=== PATIENT | male | born 1980 | race Caucasian/White ===

== ENCOUNTER 2021-06-15 09:21 | Emergency (ER) | payer SELFPAY ==
[2021-06-15 10:13] VITALS: BP 171/101; PULSE 97; RESP 20; TEMP 36.5; O2SAT 97; BMI 32.1
--- NOTE | 2021-06-15 11:05 | XRR_ITS ---
PROCEDURE INFORMATION: Exam: XR Abdomen Exam date and time: 06/15/2021 11:05 AM Age: 40 years old Clinical indication: Constipation TECHNIQUE: Imaging protocol: XR of the abdomen. Views: Frontal supine view of the abdomen. 1 View. COMPARISON: No relevant prior studies available. FINDINGS: Gastrointestinal tract: No dilated gas-filled loops of bowel. Large amount of stool throughout the colon and in the rectum. Bones/joints: No acute osseous abnormality. XR/XR KUB portable [id number] IMPRESSION: Large amount of stool throughout the colon and in the rectum. Radiation Dose CTDIVOL = (mGy): DLP = (mGy-cm)
--- NOTE | 2021-06-15 11:40 | W.ED.GENADLT ---
HPI - General Adult General: Chief complaint: General Medical Stated complaint: something came out of rectum while having bowel Time Seen by Provider: 06/15/21 10:56 History of Present Illness: HPI narrative: 40-year-old male has a bulging portion of tissue at the rectum after he strained for a bowel movement yesterday is extremely tender. Is not had any rectal bleeding. He has been constipated recently. No rectal bleeding Onset (ago): hour(s) Location: pelvis (Rectum) Severity: moderate Quality: sharp Pain Consistency: constant Relieving factors: immobilization (Lateral recumbent position) Exacerbating factors: other (Bowel movement, sitting) Associated symptoms: Deny chest pain, confusion, cough, diaphoresis, decreased appetite, dyspnea, fevers/chills, headache(s), malaise, nausea, rash, palpitations, seizures, short of breath, syncope, vomiting or weakness Treatments prior to arrival: none Review of Systems Const: Denies: malaise or diaphoresis ENMT: Denies: throat pain, ear or mastoid pain, nasal discharge or nasal congestion Card: Denies: chest pain, palpitations or syncope Resp: Denies: dyspnea GI: Denies: nausea or vomiting : Denies: flank pain, dysuria, urinary frequency or urinary urgency Skin/Breast: Denies: rash Neuro: Denies: headache(s) or confusion Physical Exam Const: COMMON NORMALS: no acute distress GENERAL APPEARANCE: cooperative and comfortable ORIENTATION/CONSCIOUSNESS: Yes awake, Yes oriented to person, Yes oriented to place and Yes oriented to time HENMT: COMMON NORMALS: normocephalic, atraumatic and hearing grossly normal bilaterally HEAD & SCALP: normocephalic and atraumatic Neck/C-Spine: COMMON NORMALS: no JVD Resp: COMMON NORMALS: normal respiratory effort, No retractions, No use of accessory muscles and clear to auscultation bilaterally AUSCULTATION: clear to auscultation bilaterally Cardio: COMMON NORMALS: no JVD, regular rate, regular rhythm and No murmurs present (Cardio) RATE: regular rate RHYTHM: regular rhythm GI: COMMON NORMALS: Soft to palpation and No hepatosplenomegaly present AUSCULTATION: Yes normoactive bowel sounds PALPATION: Yes Soft to palpation, No Tenderness to palpation present (GI), No Guarding due to palpation present (GI) and Yes No hepatosplenomegaly present OTHER: 2 thrombosed hemorrhoids 1 at the 9 o'clock position and is elongated another just superior to that. Extremity: COMMON NORMALS: normal to inspection, capillary refill normal, no clubbing, cyanosis or edema, no calf tenderness and no pedal edema Neuro: SENSORIUM/ORIENTATION: Yes oriented to person, Yes oriented to place and Yes oriented to time Skin: COMMON NORMALS: no rashes or lesions noted GENERAL SKIN EXAM: no rashes or lesions noted Procedures Abscess I/D Site: other (Thrombosed hemorrhoid rectum) Side (if applicable): right Local Anesthetic: lidocaine 1% and with epi Amount of anesthesia used (mL): 2 Technique: incised with #11 blade (Incision and drainage of thrombosed external hemorrhoid) Amount of fluid expressed (mL): 5 Packing used?: none Complications: pain Course Vital Signs: Vital signs: Vital Signs Temperature 97.7 F 06/15/21 10:13 Pulse Rate 18 L 06/15/21 12:57 Respiratory Rate 20 H 06/15/21 12:57 Blood Pressure 148/74 06/15/21 12:57 Pulse Oximetry 98 06/15/21 12:57 MDM - General Adult MDM Narrative: Medical decision making narrative: Discharge home pain medications topical Anusol follow-up with general surgery. Return if has further problems recommend sitz bath's and begin [id number] stool softeners regularly. Discharge Plan Discharge Patient Disposition: Home Clinical Impression: Hemorrhoids, thrombosed Condition: Stable Prescriptions: New hydrocodone-acetaminophen 5-325 mg tablet 1 tab PO Q6H PRN (Reason: pain) Qty: 15 RF: 0 Anusol-HC 2.5 % cream with perineal applicator 1 applic [place] QID 21 Days RF: 0 Discharge Orders: Discharge ED (Routine); Ordered 06/15/21 Ordered By: Benji Snow Patient Instructions: Opioid Safety Activity Restrictions/Additional Instructions: Case management will call to make arrangements for referral to general surgery. Coding Level of Care Code ED Engine Room Operator for Tomi Rondon
[2021-06-15] MEDS: LORazepam 2 mg/mL INJ 1 mL IVP (11:54)
[2021-06-15 11:55] VITALS: RESP 18
[2021-06-15] MEDS: morphine 4 mg/mL SDV 1 mL IVP (11:55)
[2021-06-15 12:57] VITALS: BP 148/74; PULSE 18; RESP 20; O2SAT 98
--- NOTE | 2021-06-15 14:24 | DCPLANNER ---
pre press manager had message to schedule a follow up appointment for patient with general surgery. pre press manager emailed patients information to Jacque Saleh and Angelica. Patients information will be printed and reviewed. Clinic will call patient with appointment information.
--- NOTE | 2021-07-09 07:49 | DCPLANNER ---
manager truck was told that when clinic called phone number in chart that clinic was told that was not the patients number. Clinic unable to reach patient to schedule an appointment.
== END 2021-06-15 12:58 | disposition home or self-care (01) ==
PROVIDERS: Emergency Provider Family Medicine
DX: K64.5 Perianal venous thrombosis (principal)
CPT/HCPCS: 46083; 74018; 96374; 96375; 99283; J2060; J2270

== ENCOUNTER 2025-01-19 12:54 | Emergency (ER) | payer SELFPAY ==
--- NOTE | 2025-01-19 12:55 | XRR_ITS ---
PROCEDURE INFORMATION: Exam: XR Chest Exam date and time: 01/19/2025 1:13 PM Age: 44 years old Clinical indication: Shortness of breath; SOB TECHNIQUE: Imaging protocol: Radiologic exam of the chest. Views: 1 view. COMPARISON: CR XR KUB portable [id number] 06/15/2021 11:12 AM FINDINGS: Lungs: Unremarkable. No consolidation. Pleural spaces: Unremarkable. No pleural effusion. No pneumothorax. Heart/Mediastinum: Unremarkable. No cardiomegaly. Bones/joints: Elevation of the right clavicle in relation to the acromion, suggestive of AC joint injury. The thoracic spine demonstrates mild degenerative changes at multiple levels. XR/XR chest 1V portable [id number] IMPRESSION: No acute cardiopulmonary process.
[2025-01-19 13:04] VITALS: BP 200/133; PULSE 88; TEMP 36.3; O2SAT 99; BMI 34.8
[2025-01-19 13:19] VITALS: BP 221/134; PULSE 71; O2SAT 97
--- NOTE | 2025-01-19 13:29 | ECG_ITS ---
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1980 Requested By: Todd Goodwin Order Number: [id number] Reading MD: MAICOL CRUZ Measurements Intervals [place] Rate: 86 P: 38 WI: 179 QRS: 51 QRSD: 93 T: 53 QT: 371 QTc: 444 Interpretive Statements SINUS RHYTHM POSSIBLE LEFT VENTRICULAR HYPERTROPHY [VOLTAGE CRITERIA PLUS LAE OR QRS WIDENING] POSSIBLE LATERAL MYOCARDIAL INFARCTION , PROBABLY OLD [30 ms Q WAVE IN I/aVL/V5/V6] POSSIBLE INFERIOR MYOCARDIAL INFARCTION , PROBABLY OLD [30 ms Q WAVE IN II/aVF] No previous ECG available for comparison Electronically Signed On 01-20-2025 19:04:47 CDT by MAICOL CRUZ [email or web address]
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
--- NOTE | 2025-01-19 13:33 | ED_ITS ---
HPI - Abdominal Pain 2 General: Chief Complaint: Abdominal Pain Stated Complaint: abd pain, hurts to breathe Time Seen by Provider: 01/19/25 13:13 Source: patient Mode of arrival: ambulatory Limitations: no limitations History of Present Illness: 44-year-old male states that over the 2 days has been having epigastric abdominal pain states been a sharp pain states its improved throughout the day today the pain is now 6 out of 10 he states pain is radiated to his chest he is also been hypertensive no known history of high blood pressure in the past. Associated Symptoms: Denies chills, diarrhea, fever(s), nausea and vomiting Related Data Previous Rx's ?Medication ?Instructions ?Recorded amlodipine 10 mg tablet (Norvasc) 10 mg PO DAILY #30 t abs 01/19/25 hydrocodone 5 mg-acetaminophen 325 1 tab PO Q6H PRN pa in #14 tabs 01/19/25 mg tablet ondansetron 4 mg disintegrating 4 mg PO Q6H PRN nausea and 01/19/25 tablet vomiting #14 tabs Allergies Allergy/AdvReac Type Severity Reaction Status Date / Time No Known Allergies Allergy Verified 01/19/25 13:11 Review of Systems 2 Const: Denies: fever(s), chills, body aches or change in appetite ENMT: Denies: throat pain or dental pain Card: Reports: chest pain Resp: Denies: dyspnea GI: Reports: abdominal pain; Denies: nausea, vomiting or diarrhea Musc: Denies: neck pain or back pain Skin/Breast: Denies: rash Neuro: Denies: headache(s) PFSH ED 2 PFSH: Surgical History H/O splenectomy Social History Smoking and tobacco/nicotine status: current every day tobacco/nicotine user (1 PPD) cigarettes Packs smoked per day: 1 Years cigarettes smoked: 23 Second hand smoke exposure: Yes Alcohol intake: former Substance/Drug Use: never Household members: spouse Marital status: service: No Current occupational status: employed Current occupation: construction Current gender identity: Male Physical Exam 2 Const: COMMON NORMALS: no acute distress, patient oriented x3 and healthy appearing HENMT: COMMON NORMALS: normocephalic and atraumatic HEAD & SCALP: n ormocephalic and atraumatic Eye: COMMON NORMALS: Equal, round and reactive pupils present and EOMs intact bilaterally PUPIL: Yes Equal, round and reactive pupils present Neck/C-Spine: COMMON NORMALS: full ROM and supple Chest: COMMONS NORMALS: normal inspection of the chest and normal palpation of entire chest wall Resp: COMMON NORMALS: normal respiratory effort, No retractions, No use of accessory muscles and clear to auscultation bilaterally AUSCULTATION: clear to auscultation bilaterally Cardio: COMMON NORMALS: regular rate, regular rhythm and No murmurs present (Cardio) RATE: regular rate RHYTHM: regular rhythm GI: COMMON NORMALS: Normal to inspection, nondistended, normoactive bowel sounds present, Soft to palpation, non-tender and no masses PALPATION: Yes Soft to palpation Extremity: COMMON NORMALS: normal to inspection and full ROM Neuro: COMMON NORMALS: patient oriented x3, moves all extremities and no focal motor deficits Psych: COMMON NORMALS: mental status grossly normal, Normal thought process present and cooperative THOUGHT PROCESS: Normal thought process present Skin: COMMON NORMALS: no rashes or lesions noted and no wounds GENERAL SKIN EXAM: no rashes or lesions noted Course 2 Vital Signs: Vital signs: Vital Signs Temperature 97.4 F L 01/19/25 13:04 Pulse Rate 88 01/19/25 14:11 Respiratory Rate 20 H 01/19/25 14:11 Blood Pressure 206/126 01/19/25 14:11 Pulse Oximetry 97 01/19/25 14:11 Oxygen Delivery Me thod Room Air 01/19/25 13:04 MDM - Abdominal Pain Medical Decision Making Patient presents here with abdominal pain blood work CT is normal he is also hypertensive here we will start him on blood pressure medicines he is to follow- up with PCP return if worsening Medical Records I reviewed the patient's medical records. Lab Data I reviewed the patient's lab results. 01/19/25 13:32 01/19/25 13:32 Labs/Radiology: Radiology Impressions Chest X-Ray 01/19/25 12:55 IMPRESSION: No acute cardiopulmonary process. Chest/Abdomen/Pelvis CT 01/19/25 13:29 IMPRESSION: 1. No pulmonary embolism. 2. No acute infiltrates. 3. Small right pleural effusion with right lower lobe atelectasis. IMPRESSION: No acute intra-abdominal process. Laboratory Results WBC 11.91 10^3/uL (3.29-11.43) H 01/19/25 13:32 RBC 5.15 10^6/uL (3.85-5.65) 01/19/25 13:32 Hgb 15.00 g/dL (11.27-16.99) 01/19/25 13:32 Hct 45.4 % (37-53) 01/19/25 13:32 MCV 88.2 fl (82-101) 01/19/25 13:32 MCH 29.1 pg (27-33) 01/19/25 13:32 MCHC 33.0 g/dL (30-55) 01/19/25 13:32 RDW 13.9 % (12.1-15.1) 01/19/25 13:32 Plt Count 379 10^3/cmm (157-399) 01/19/25 13:32 MPV 10.6 fL (7.4-10.4) H 01/19/25 13:32 Neut % (Auto) 72.7 % 01/19/25 13:32 Lymph % (Auto) 17.7 % 01/19/25 13:32 [place] % (Auto) 6.2 % 01/19/25 13:32 Eos % (Auto) 1.6 % 01/19/25 13:32 Baso % (Auto) 1.3 % 01/19/25 13:32 Neut # (Auto) 8.66 10^3/uL (1.8-7.7) H 01/19/25 13:32 Lymph # (Auto) 2.1 10^3/uL (0.8-4.8) 01/19/25 13:32 [place] # (Auto) 0.7 10^3/uL (0.2-0.9) 01/19/25 13:32 Eos # (Auto) 0.2 10^3/uL (0.0-0.8) 01/19/25 13:32 Baso # (Auto) 0.2 10^3/uL (0.0-0.1) H 01/19/25 13:32 Nucleated RBC % (auto) 0 % 01/19/25 13:32 Nucleated RBCs # 0.0 /100WBC 01/19/25 13:32 Sodium 137 mmol/L (136-145) 01/19/25 13:32 Potassium 4.0 mmol/L (3.5-5.1) 01/19/25 13:32 Chloride 101 mmol/L (98-107) 01/19/25 13:32 Carbon Dioxide 26 mmol/L (22-29) 01/19/25 13:32 Anion Gap 14.0 (5-19) 01/19/25 13:32 BUN 14 mg/dL (6-20) 01/19/25 13:32 Creatinine 0.9 mg/dL (0.7-1.2) 01/19/25 13:32 GFR Calculation 92.1 mL/min (90-130) 01/19/25 13:32 Glucose 146 mg/dL (65-115) H 01/19/25 13:32 Calculated Osmolality 287 mOsm/kg (285-295) 01/19/25 13:32 Calcium 9.6 mg/dL (8.5-10.5) 01/19/25 13:32 Total Bilirubin 0.4 mg/dL (0.15-1.2) 01/19/25 13:32 AST 19 U/L (0-40) 01/19/25 13:32 ALT 18 U/L (0-41) 01/19/25 13:32 Alkaline Phosphatase 132 U/L (40-130) H 01/19/25 13:32 Troponin T Baseline 7 ng/L (0-15) 01/19/25 13:32 Total Protein 7.8 g/dL (6.6-8.7) 01/19/25 13:32 Albumin 4.2 g/dL (3.5-5.2) 01/19/25 13:32 Globulin 3.6 g/dL (1.3-4.6) 01/19/25 13:32 Lipase 24 U/L (13-60) 01/19/25 13:32 All radiology interpretation(s) finalized by discharge EKG Data EKG 1: I personally reviewed and interpreted this EKG as follows: EKG interpretation date: 01/19/25 EKG interpretation time: 13:56 Interpretation: nsr hr [address] elevation qrs 93 qtc 414 Discharge Plan Discharge Patient Disposition: Home Clinical Impression: Abdominal pain, Hypertension Condition: Stable Prescriptions: New hydrocodone-acetaminophen 5-325 mg tablet 1 tab PO Q6H PRN (Reason: pain) Qty: 14 0RF ondansetron 4 mg tablet,disintegrating 4 mg PO Q6H PRN (Reason: nausea and vomiting) Qty: 14 0RF amlodipine [Norvasc] 10 mg tablet 10 mg PO DAILY Qty: 30 0RF Discharge Orders: Discharge ED (Routine); Ordered 01/19/25 Ordered By: Todd Goodwin Discharge Diet: Advance as tolerated Discharge Activity: Resume usual activity Patient Instructions: Abdominal Pain (ED), Hypertension (ED) Print Language: Welsh Coding Level of Care Code ED Senior Marketing Associate for Tomi Rondon
[2025-01-19 13:39] LABS: Basophils # 0.2 10^3/uL (0.0-0.1); Basophils % 1.3 %; Eosinophils # 0.2 10^3/uL (0.0-0.8); Eosinophils % 1.6 %; Hematocrit 45.4 % (37-53); Lymphocytes # 2.1 10^3/uL (0.8-4.8); Lymphocytes % 17.7 %; Mean Corpuscular Hemoglobin 29.1 pg (27-33); Mean Corpuscular Volume 88.2 fl (82-101); Mean Platelet Volume 10.6 fL (7.4-10.4); Monocytes # 0.7 10^3/uL (0.2-0.9); Monocytes % 6.2 %; Neutrophils # 8.66 10^3/uL (1.8-7.7); Neutrophils % 72.7 %; Nucleated Red Blood Cells % 0 %; Platelet Count 379 10^3/cmm (157-399); Red Blood Count 5.15 10^6/uL (3.85-5.65); Red Cell Distribution Width 13.9 % (12.1-15.1); White Blood Count 11.91 10^3/uL (3.29-11.43)
[2025-01-19] MEDS: iohexol 350 mg/mL 500 mL Btl (per mL) IV (13:58)
[2025-01-19 14:03] LABS: Troponin(5th) Baseline 7 ng/L (0-15)
[2025-01-19] MEDS: hyDRALAzine 20 mg/mL INJ 1 mL 10 MG IVP (14:06)
[2025-01-19 14:09] LABS: Alanine Aminotransferase 18 U/L (0-41); Albumin Level 4.2 g/dL (3.5-5.2); Alkaline Phosphatase 132 U/L (40-130); Aspartate Amino Transferase 19 U/L (0-40); Blood Urea Nitrogen 14 mg/dL (6-20); Calcium 9.6 mg/dL (8.5-10.5); Carbon Dioxide 26 mmol/L (22-29); Chloride 101 mmol/L (98-107); Creatinine Clr Calc Pharmacy 135.5294; Globulin 3.6 g/dL (1.3-4.6); Glomerular Filtration Rate 92.1 mL/min (90-130); Glucose 146 mg/dL (65-115); Lipase 24 U/L (13-60); Osmolality Calculated 287 mOsm/kg (285-295); Sodium 137 mmol/L (136-145); Total Bilirubin 0.4 mg/dL (0.15-1.2); Total Protein 7.8 g/dL (6.6-8.7)
[2025-01-19 14:11] VITALS: BP 206/126; PULSE 88; RESP 20; O2SAT 97
[2025-01-19 14:51] VITALS: BP 200/128; PULSE 90; RESP 18; O2SAT 96
== END 2025-01-19 14:52 | disposition home or self-care (01) ==
PROVIDERS: Emergency Provider Emergency Medicine
DX: R10.13 Epigastric pain (principal); I10 Essential (primary) hypertension; F17.210 Nicotine dependence, cigarettes, uncomplicated; Z79.899 Other long term (current) drug therapy
CPT/HCPCS: 36415; 71045; 71275; 74177; 80053; 83690; 84484; 85025; 93005; 96374; 99285; J0360